=== PATIENT | female | born 1985 | race Caucasian/White ===

== ENCOUNTER 2016-07-13 23:53 | Emergency (ER) | payer MEDICAID, OTHER ==
--- NOTE | 2016-07-14 00:09 | ER Document Report ---
ED Medical Screen (RME) - General Chief Complaint: Abscess Stated Complaint: POSSIBLE ABSCESS ON VAGINA Time seen by provider: 00:07 Mode of Arrival: Ambulatory Information source: Patient Notes: 31-year-old female presents to ED for a possible Bartholin's cyst left labia. Patient states has been there for weeks and she was supposed to see a doctor today but it got canceled. Last menstrual period 06/21/2016. I have greeted and performed a rapid initial assessment of this patient. A comprehensive ED assessment and evaluation of the patient, analysis of test results and completion of medical decision making process will be conducted by an additional ED providers. - Related Data Allergies/Adverse Reactions: cefaclor [From Ceclor] Allergy (Severe, Verified 10/23/11 18:00) Anaphylaxis iodine [Iodine] Allergy (Severe, Verified 10/23/11 18:00) Anaphylaxis latex [Latex] Allergy (Intermediate, Verified 10/23/11 18:02) Hives seafood Allergy (Severe, Uncoded 10/23/11 18:02) Anaphylaxis Physical Exam - Vital signs Vitals: Temp Pulse Resp BP Pulse Ox 97.6 F 94 16 122/83 97 07/13/16 23:58 07/13/16 23:58 07/13/16 23:58 07/13/16 23:58 07/13/16 23:58 Course - Vital Signs Vital signs: Temp Pulse Resp BP Pulse Ox 97.6 F 94 16 122/83 97 07/13/16 23:58 07/13/16 23:58 07/13/16 23:58 07/13/16 23:58 07/13/16 23:58
--- NOTE | 2016-07-14 03:44 | ER Document Report ---
ED GI/ - General Chief Complaint: Cyst Stated Complaint: POSSIBLE ABSCESS ON VAGINA Time seen by provider: 03:43 Mode of Arrival: Ambulatory Information source: Patient Notes: 31-year-old female presents to ED for a abscess in the vaginal area TRAVEL OUTSIDE OF THE [place] IN LAST 30 DAYS: No - HPI Patient complains to provider of: Vaginal pain - Cyst on left labia Onset: Other - "Weeks" Timing/Duration: Gradual, Worse Quality of pain: Sharp Severity at maximum: Moderate Severity in ED: Moderate Pain Level: 4 Location: Vaginal Vaginal bleeding (Compared to normal period): None LMP: 06/21/2016 Associated symptoms: Other - Pain and swelling to left labia Exacerbated by: Movement, Walking Relieved by: Denies Similar symptoms previously: Yes Recently seen / treated by doctor: No - Related Data Allergies/Adverse Reactions: cefaclor [From Ceclor] Allergy (Severe, Verified 10/23/11 18:00) Anaphylaxis iodine [Iodine] Allergy (Severe, Verified 10/23/11 18:00) Anaphylaxis latex [Latex] Allergy (Intermediate, Verified 10/23/11 18:02) Hives seafood Allergy (Severe, Uncoded 10/23/11 18:02) Anaphylaxis Past Medical History - General Information source: Patient - Social History Smoking Status: Current Every Day Smoker Cigarette use (# per day): Yes - one half to one pack a day Chew tobacco use (# tins/day): No Smoking Education Provided: Yes - less than 2 minutes Frequency of alcohol use: Occasional Drug Abuse: None Occupation: none Lives with: Family Family History: Arthritis, CAD, DM, Hyperlipidemia, Hypertension, Malignancy Patient has suicidal ideation: No Patient has homicidal ideation: No - Past Medical History Cardiac Medical History: Reports: None Pulmonary Medical History: Reports: None EENT Medical History: Reports: None Neurological Medical History: Reports: None Endocrine Medical History: Reports: Other - Hypoglycemia Renal/ Medical History: Reports: Hx Ovarian Cysts Malignancy Medical History: Reports: None GI Medical History: Reports: None Musculoskeltal Medical History: Reports Hx Musculoskeletal Deformity, Reports Hx Musculoskeletal Trauma Skin Medical History: Reports None Psychiatric Medical History: Reports: Hx Anxiety, Hx Attention Deficit Hyperactivity Disorder, Hx Bipolar Disorder Traumatic Medical History: Reports: Hx Fractures - Left arm Infectious Medical History: Reports: None Past Surgical History: Reports: Hx Gynecologic Surgery - Multiple Bartholin's cyst removed, Hx Nose Surgery - Sinus window drilled, Hx Oral Surgery - Multiple teeth removed surgically, Hx Tubal Ligation - With part of tubes removed - Immunizations Immunizations up to date: Yes Hx Diphtheria, Pertussis, Tetanus Vaccination: Yes Review of Systems - Review of Systems Constitutional: No symptoms reported EENT: No symptoms reported Cardiovascular: No symptoms reported Respiratory: No symptoms reported Gastrointestinal: No symptoms reported Genitourinary: No symptoms reported Female Genitourinary: Other - Painful swelling to her left labia Musculoskeletal: No symptoms reported Skin: No symptoms reported Hematologic/Lymphatic: No symptoms reported Neurological/Psychological: No symptoms reported Physical Exam - Vital signs Vitals: Temp Pulse Resp BP Pulse Ox 97.6 F 94 16 122/83 97 07/13/16 23:58 07/13/16 23:58 07/13/16 23:58 07/13/16 23:58 07/13/16 23:58 Interpretation: Normal - General General appearance: Appears well, Alert - HEENT Head: Normocephalic, Atraumatic Eyes: Normal Pupils: PERRL - Respiratory Respiratory status: No respiratory distress Chest status: Nontender Breath sounds: Normal Chest palpation: Normal - Cardiovascular Rhythm: Regular Heart sounds: Normal auscultation Murmur: No - Abdominal Inspection: Normal Distension: No distension Bowel sounds: Normal Tenderness: Nontender Organomegaly: No organomegaly - Genitourinary External exam: Other - Painful knot to left labia - Back Back: Normal, Nontender - Extremities General upper extremity: Normal inspection, Nontender, Normal color, Normal ROM , Normal temperature General lower extremity: Normal inspection, Nontender, Normal color, Normal ROM , Normal temperature, Normal weight bearing. No: Everton's sign - Neurological Neuro grossly intact: Yes Cognition: Normal Orientation: AAOx4 Esteban Coma Scale Eye Opening: Spontaneous Vandergrift Coma Scale Verbal: Oriented Esteban Coma Scale Motor: Obeys Commands Esteban Coma Scale Total: 15 Speech: Normal Motor strength normal: LUE, RUE, LLE, RLE Sensory: Normal - Psychological Associated symptoms: Normal affect, Normal mood - Skin Skin Temperature: Warm Skin Moisture: Dry Skin Color: Normal Course - Re-evaluation Re-evalutation: 07/14/16 06:49 Patient discharged home with prescription for Bactrim DS and norco. Patient to follow-up with her primary M.D. - Vital Signs Vital signs: Temp Pulse Resp BP Pulse Ox 97.2 F 67 16 101/76 98 07/14/16 05:56 07/14/16 05:56 07/14/16 05:56 07/14/16 05:56 07/14/16 05:56 Procedures - Incision and Drainage Left Labia Type: Simple Anesthetic type: 1% Lidocaine mL's of anesthetic: 4 Blade size: 11 I&D procedure: Other - Surgical scrub Incision Method: Incision made by scalpel Amount/type of drainage: moderate purulent Discharge - Discharge Clinical Impression: Bartholin cyst Condition: Stable Disposition: HOME, SELF-CARE Additional Instructions: ABSCESS: You have an abscess (boil). This a pus-forming infection, usually due to staph. Some boils may be left to drain on their own, but most require lancing. From the time the tender lump first appears, it may be three or four days before the abscess is ready to alberta. Local heat and rest help at this stage of treatment. An antibiotic may prevent spread of the infection. Once the abscess is opened, packing may be placed into it. This is done so pus is not sealed inside by premature closure of the cavity. The packing will be removed at your follow-up visit or you may be advised to remove it yourself at home. Sometimes this packing must be replaced a few times during healing. The wound will heal with surprisingly little scar. Depending on the size and location of an abscess, healing can take one to four weeks. You may shower and wash the area around the incision site two or three times a day. Antibiotics may be prescribed, but are usually not necessary after an abscess has been drained. If you develop fever, chills, worsening pain, or increasing swelling in the area, call the doctor or return immediately. Bartholin Gland Cyst or Abcess The Bartholin glands are located on each side of the entrance to the vagina. These glands secrete lubricating fluid. If a gland becomes plugged, it can create a "Bartholin's cyst." This creates a large bulge on one side of the labia. A cyst is usually not very painful. If a Bartholin's cyst or gland becomes infected, it creates an abscess. This is a painful collection of pus. One side of the labia becomes swollen, red , and painful. It will be very painful to walk or sit. When a Bartholin's cyst causes mild symptoms, it can sometimes be treated with sitz baths and antibiotics. A painful abscess usually needs to be drained ( lanced). If there are signs of infection in the tissues around the abscess, we prescribe antibiotics. Antibiotics are not always necessary for an abscess that' s been drained. If packing has been placed, it's important to follow up as scheduled for removal or replacement of the packing. Return if you have increasing fever, body aches, lightheadedness, or if the swelling and pain is getting worse. POST INCISION AND DRAINAGE: You have had an incision made to allow drainage of an abscess. The incision must remain open so that pus and debris can drain from the wound. If the abscess cavity is large, packing is placed. This keeps the tissues from collapsing and trapping pus inside, while the body shrinks the cavity. The packing may need to be replaced every day or two. The physician will instruct you on the packing. Keep a bulky dressing over the area. Replace it if it becomes saturated with blood or pus. Do not disturb the packing (if present). You may shower and cleanse the area with gentle soap and warm water two or three times a day. Local warmth may be soothing, and may promote faster healing. Return if you develop high fever or chills, or if you note spreading redness, increasing swelling, or increasing tenderness. ORAL NARCOTIC MEDICATION: You have been given a prescription for pain control. This medication is a narcotic. It's best taken with food, as nausea can result if taken on an empty stomach. Don't operate machinery or drive within six hours of taking this medication. Do not combine this medicine with alcohol, or with any medication which can cause sedation (such as cold tablets or sleeping pills) unless you get permission from the physician. Narcotics tend to cause constipation. If possible, drink plenty of fluids and eat a diet high in fiber and fruits. TRIMETHOPRIM-SULFA: You have been given a prescription for trimethoprim-sulfa (TMS, Septra, Bactrim). This is a combination antibiotic of the sulfa class, often used for urinary tract infections, middle ear infections, bronchitis, shigella intestinal infection, and Pneumocystis pneumonia. TMS is usually well-tolerated. Occasional side effects include nausea and decreased appetite. Septra is not recommended for infants less than two months of age. Do not take this medication if you have experienced severe side effects or allergy to sulfa medicine. You should stop this medicine at once and contact your physician if you develop any rash, joint pain, shortness of breath, bruising, or jaundice ( yellow color in the skin), or if you develop any other new or unusual symptoms. FOLLOW-UP CARE: Most simple abscesses will not require a follow up visit. If you had packing placed in the abscess, remove it as instructed by the physician. If you have been referred to a physician for follow-up care, call the physicians office for an appointment as you were instructed or within the next two days. If you experience worsening or a significant change in your symptoms, return to the Emergency Department at any time for re-evaluation. Prescriptions: Hydrocodone/Acetaminophen [Ashfield 5-325 mg Tablet] 1 tab PO Q6HP PRN #14 tablet PRN Reason: Sulfamethoxazole/Trimethoprim [Bactrim Ds Tablet] 1 each PO BID #14 tablet Forms: Return to Work Referrals: IGNACIA LIPSCOMB NP [Primary Care Provider] - Follow up as needed
[2016-07-14] MEDS ORDERED: HYDROCODONE/ACETAMINOPHEN 5-325 MG TABLET PO ONE (03:49)
[2016-07-14 06:05] VITALS: BP 101/76
== END 2016-07-14 06:06 | disposition home or self-care (01) ==
LOC: ER 23:53
PROC: 0H9AXZZ Drainage of Inguinal Skin, External Approach (ICD-10-PCS; principal; 2016-07-13)
DX: N75.0 Cyst of Bartholin's gland (principal); F17.210 Nicotine dependence, cigarettes, uncomplicated; Z91.040 Latex allergy status
CPT/HCPCS: 99283

== ENCOUNTER 2016-09-17 12:18 | Day surgery (SDC) | payer OTHER ==
[~2016-09-17 12:18] MED LIST: CLINDAMYCIN 900 MG/D5W RTU 50 ML IV PRN; GABAPENTIN 400 MG CAPSULE PO PRN; GLYCOPYRROLATE INJ 0.4 MG/2 ML VIAL ONE; LIDOCAINE 2% INJ-PF (20 MG/ML) 10 ML AMPUL ONE; ONDANSETRON HCL INJ/PF 4 MG/2 ML SDV ONE; RINGERS SOLUTION,LACTATED 1,000 ML IV PRN; ROCURONIUM BROMIDE INJ 50 MG/5 ML VIAL IV ONE; SUCCINYLCHOLINE CHLORIDE INJ 200 MG/10 ML VIAL ONE
[2016-09-17] MEDS ORDERED: LIDOCAINE 1% INJ-PF (10 MG/ML) 30 ML SDV ONE (12:36)
[2016-09-17] MEDS ORDERED: PROPOFOL INJ 200 MG/20 ML VIAL IV ONE (12:39)
[2016-09-17] MEDS ORDERED: FENTANYL CITRATE INJ/PF 100 MCG/2 ML AMPUL ONE ×2 (12:39→15:56)
[2016-09-17] MEDS ORDERED: MIDAZOLAM 2 MG/2 ML INJ ONE (12:39)
[2016-09-17 13:27] LABS: ABSOLUTE EOSINOPHILS # (AUTO) 0.2 10^3/uL (0.0-0.6); ABSOLUTE LYMPHOCYTES (AUTO) 2.6 10^3/uL (0.5-4.7); ABSOLUTE MONOCYTES (AUTO) 0.6 10^3/uL (0.1-1.4); ABSOLUTE NEUT (AUTO) 3.2 10^3/uL (1.7-8.2); BASOPHILS % (AUTO) 0.7 % (0-2); EOSINOPHILS % (AUTO) 3.2 % (0-6); HEMATOCRIT 43.2 % (36.0-47.0); HEMOGLOBIN 14.5 g/dL (12.0-15.5); HGB HCT DIFFERENCE 0.3; LYMPHOCYTES % (AUTO) 39.3 % (13-45); MEAN CORPUSCULAR HEMOGLOBIN 31.1 pg (27.0-33.4); MEAN CORPUSCULAR HGB CONC 33.6 g/dL (32.0-36.0); MEAN CORPUSCULAR VOLUME 93 fl (80-97); MONOCYTES % (AUTO) 8.4 % (3-13); RED BLOOD COUNT 4.66 10^6/uL (3.72-5.28); RED CELL DISTRIBUTION WIDTH 15.2 % (11.5-14.0); SEGMENTED NEUTROPHILS % (AUTO) 48.4 % (42-78); WHITE BLOOD COUNT 6.7 10^3/uL (4.0-10.5)
[2016-09-17] MEDS ORDERED: ACETAMINOPHEN 100 ML IV ONE (13:59)
[2016-09-17] MEDS ORDERED: LIDOCAINE 1%/EPINEPHRINE INJ 20 ML VIAL ONE (14:02)
[2016-09-17] MEDS ORDERED: OXYCODONE-ACETAMINOPHEN 5-325 MG TABLET PO PRN ×2 (14:06)
[2016-09-17] MEDS ORDERED: PROMETHAZINE HCL INJ 25 MG/1 ML VIAL IV PRN ×2 (14:06)
[2016-09-17] MEDS ORDERED: FENTANYL CITRATE INJ/PF 100 MCG/2 ML AMPUL IV PRN ×3 (14:06)
[2016-09-17] MEDS ORDERED: DIPHENHYDRAMINE HCL 50 MG/ML VIAL IV PRN (14:06)
[2016-09-17] MEDS ORDERED: MEPERIDINE HCL/PF INJ 25 MG/1 ML DISP.SYRIN IV PRN (14:06)
[2016-09-17] MEDS ORDERED: MORPHINE SULFATE 10 MG/ML INJ IV PRN (14:06)
[2016-09-17 14:21] LABS: APPEARANCE,URINE CLOUDY; BILIRUBIN,URINE NEGATIVE (NEGATIVE); GLUCOSE, URINE NEGATIVE (NEGATIVE); KETONES,URINE NEGATIVE (NEGATIVE); LEUKOCYTE ESTERASE,URINE MODERATE (NEGATIVE); NITRITE,URINE NEGATIVE (NEGATIVE); PROTEIN,URINE 100 mg/dL (NEGATIVE); URINE SPECIFIC GRAVITY 1.019
[2016-09-17] MEDS ORDERED: ESTROGENS,CONJUGATED 0.625 MG/1 GM 30 GM TUBE ONE (15:13)
--- NOTE | 2016-09-17 15:27 | PDOC DISCHARGE SUMMARY ---
Discharge Summary (SDC) - Discharge Final Diagnosis: Left recurrent bartholin gland cyst Date of Surgery: 09/17/16 Discharge Date: 09/17/16 Condition: Good Forms: Post Operative Treatment or Instructions: Excision of left bartholin gland cyst Prescriptions: Docusate Sodium [Colace 100 mg Capsule] 100 mg PO BID #60 capsule Ibuprofen [Motrin 800 mg Tablet] 800 mg PO Q8H PRN #30 tab PRN Reason: Oxycodone HCl/Acetaminophen [Percocet 5-325 mg Tablet] 1 - 2 tab PO ASDIR PRN # 25 tablet PRN Reason: Pain Scale Of 3 Referrals: LINH FERNANDEZ MD [NO LOCAL MD] - (Please call the FLIGHT TEST SUPERVISOR RN at [phone] to schedule a follow up appointment for 2-4 weeks from the date of your surgery. You may also call with any questions or concerns you might have. ) Discharge Diet: As Tolerated Respiratory Treatments at Home: Deep Breathing/Coughing Discharge Activity: Activity As Tolerated, Pelvic Rest - for 2 weeks, No tub bath - you may shower Home Care Assistance: None Needed Report the Following to Your Physician Immediately: Vomiting, Increase in Pain, Fever over 101 Degrees, Drainage-Foul Smelling, Increased Vaginal Bleed, Large Clots, Urinary Infection Signs
[2016-09-17] MEDS ORDERED: OXYCODONE-ACETAMINOPHEN 5-325 MG TABLET ONE (16:42)
[2016-09-17 18:12] VITALS: BP 123/78
--- NOTE | 2016-09-18 11:19 | OPERATIVE REPORT E ---
Operative Report NAME: BELA SONI : 1985 AGE: 31Y DATE OF SURGERY: 09/17/2016 ROOM: PREOPERATIVE DIAGNOSIS: Recurrent left Bartholin gland cyst. POSTOPERATIVE DIAGNOSIS: Recurrent left Bartholin gland cyst. PROCEDURE: Excision of left Bartholin gland. SURGEON: LINH FERNANDEZ M.D. AUTOMOTIVE SALES PROFESSIONAL: Dr. Lori Fay ANESTHESIA: MAC. COMPLICATIONS: None. ESTIMATED BLOOD LOSS: 10 mL. URINE: Clear at the end of the procedure. SPECIMENS: Left Bartholin gland cyst. FINDINGS: A large cyst with serosanguineous and some chocolate appearing fluid, possibly old blood, in the cyst apparent at the 5 o'clock position on the patient's vulva consistent with a left Bartholin gland. The cyst at the time of opening the skin was noted to be approximately 1.5 to 2 cm in diameter. INDICATIONS: An informed consent. The risks, benefits, and alternatives to excision of the Bartholin gland cyst were discussed with the patient including but not limited to infection, allergic reaction, scar, blood loss, injury to surrounding organs, or need for a second operation or other procedures. Alternatives including but not limited to observation, medical management, further drainage, incision, placement of OR catheter, and marsupialization were all discussed with the patient. She consented to the above procedure. PROCEDURE: The patient was taken to the operating room where anesthesia was undertaken. She was prepped and draped in the usual sterile fashion in a dorsal lithotomy position in adjustable Jose stirrups. A surgical time out was held. At this time, inspection and examination were performed of the left Bartholin gland. It was found to be mobile and approximately 1.5 to 2 cm in diameter. At this time, injection with 1% lidocaine with epinephrine around the area of the gland was undertaken. Next, the skin over the mucous membrane just inside the introitus was incised with a scalpel. Allis clamps were used to be placed at the margins of the incision to adjust in traction. At this time, Bhakta scissors were used to dissect out the gland freeing up the cystic structure from its base. At the point of the identification of the base and some vasculature, a Ro clamp was used to clamp across the structures. The Bhakta scissors were then used to cut the specimen free from its pedicle at the clamp. It was passed off and sent to pathology for permanent. At this time, a Rob stitch was used to ligate the pedicle. It was noted to be hemostatic and the clamp was released. Next, the defect in the left labia area was closed using a deep layer of 2-0 Vicryl suture in an imbricating fashion. Excellent hemostasis was noted. Using 3-0 Vicryl suture in an interrupted fashion to control one area of bleeding and the Bovie cautery for other small areas of hemostasis. Next, a second layer with 3-0 Vicryl suture was used in an imbricating running fashion and finally the skin was closed with 4-0 Monocryl in a subcuticular fashion. Hemostasis and cosmesis was noted to be excellent. At this time, Premarin creme was applied over the area of the repair. The bladder was drained with in-and-out catheter. Clear urine was noted. Sponge and instrument counts were correct at the end of the procedure. The patient was taken to recovery in stable condition. DICTATING PHYSICIAN: LINH FERNANDEZ M.D. [id number] PHY#: [id number] ID: [id number] JOB#: [id number] ACCT: [id number] cc:LINH FERNANDEZ M.D. >
== END 2016-09-17 18:05 | disposition home or self-care (01) ==
LOC: OROUT 12:18
PROVIDERS: ATTEND Obstetrics & Gynecology
PROC: 0UBLXZZ Excision of Vestibular Gland, External Approach (ICD-10-PCS; principal; 2016-09-17 14:15)
DX: N75.0 Cyst of Bartholin's gland (principal); G43.909 Migraine, unspecified, not intractable, without status migrainosus; F17.210 Nicotine dependence, cigarettes, uncomplicated; F41.9 Anxiety disorder, unspecified; F32.9 Major depressive disorder, single episode, unspecified; Z79.899 Other long term (current) drug therapy
CPT/HCPCS: 56740; 86900; 86901; 36415; 86850; 85025; 81025; 81001; 88305 ×2; J2250; J3490 ×4; J3010; J0330; J2405; J2704; J0131; 940